=== PATIENT | male | born 1975 | race American Indian/Alaskan Native ===

== ENCOUNTER 2017-10-20 20:34 | Emergency (ER) | payer OTHER ==
[2017-10-20] MEDS ORDERED: TYLENOL PO ONE (21:49)
[2017-10-20] MEDS ORDERED: FUL-GLO OP ONE (21:49)
[2017-10-20] MEDS ORDERED: BOOSTRIX IM ONE (21:50)
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
[2017-10-21 00:24] VITALS: BP 138/91
== END 2017-10-21 00:24 ==
LOC: ED 20:34
DX: S05.01XA Injury of conjunctiva and corneal abrasion without foreign body, right eye, initial encounter (principal); S02.81XA Fracture of other specified skull and facial bones, right side, initial encounter for closed fracture; H11.31 Conjunctival hemorrhage, right eye; F07.81 Postconcussional syndrome; Y04.0XXA Assault by unarmed brawl or fight, initial encounter; Y93.89 Activity, other specified; Y99.8 Other external cause status; Y92.149 Unspecified place in prison as the place of occurrence of the external cause
CPT/HCPCS: 70450; 70480; 72125; 90471; 90715

== ENCOUNTER 2018-06-13 09:54 | Outpatient (CLI) | payer OTHER ==
--- NOTE | 2018-06-13 11:36 | Cat Scan Report ---
CT FACIAL BONES WITHOUT CONTRAST: HISTORY: Tenderness. TECHNIQUE: Helical CT images with sagittal and coronal CT reformations. FINDINGS: Chronic appearing bilateral nasal bone fractures are identified. The nasal septum is intact and midline. The paranasal sinuses are intact. Minimal mucosal thickening is noted in the inferior maxillary sinuses bilaterally. Chronic deformity of the right inferior orbital wall is identified. The remaining orbits are intact and unremarkable. Orbital contents are within normal limits. The mandible, zygomas and remaining facial bones are intact. The skull base and visualized upper cervical spine are intact. The facial soft tissues are unremarkable. IMPRESSION: Chronic fractures of the bilateral nasal bones and right inferior orbital wall. No acute process is noted. Minimal chronic maxillary sinusitis.
== END 2018-06-13 09:55 | disposition home or self-care (01) ==
LOC: CT 09:54
PROVIDERS: ATTEND Family Medicine
DX: S02.2XXA Fracture of nasal bones, initial encounter for closed fracture (principal); S02.81XA Fracture of other specified skull and facial bones, right side, initial encounter for closed fracture; J32.0 Chronic maxillary sinusitis; X58.XXXA Exposure to other specified factors, initial encounter; Y93.89 Activity, other specified; Y92.89 Other specified places as the place of occurrence of the external cause; Y99.8 Other external cause status
CPT/HCPCS: 70486